=== PATIENT | male | born 1950 | race Caucasian/White ===

== ENCOUNTER 2020-01-28 19:52 | Inpatient (IN) | payer MEDICARE, SELFPAY ==
[2020-01-28] VITALS (15 sets, daily range): BP systolic 154–188; BP diastolic 66–81; PULSE 73–97; RESP 17–22; TEMP 36.6–37.1; O2SAT 96–100; BMI 41.1
--- NOTE | 2020-01-28 19:54 | NURSING ---
NO OLD EKGS IN MUSE
--- NOTE | 2020-01-28 20:06 | ED.VISSUMM ---
- ER Visit Summary Date of Service: 01/28/20 Chief Complaint: Syncope History of Present Illness: The patient is a 69 M who presents after 2 syncopal episodes that occurred tonight. Patient states he was sitting on his couch around 1900 hrs. and felt lightheaded. Patient states his family told him he was unresponsive for a few seconds. Patient states he had a similar episode when EMS was putting him into the squad. Patient denies any chest pain. Patient does admit to some diaphoresis with this. Patient denies any shortness of breath. Prehospital EKG shows ST elevation in leads III and aVF. Based on this a STEMI alert was called. Physical Examination: Vital signs are stable. Patient is afebrile. Patient is in no acute distress. Oral mucosa is pink and moist. Neck is supple. Trachea is midline. There is no JVD. Heart was regular rate and rhythm. Lungs are clear and equal bilaterally. Abdomen is soft. Bowel sounds are normal. There is no tenderness. Extremities are intact. There is no calf tenderness or edema. Cranial nerves II through XII are intact. There are no focal motor or sensory deficits. Test Results: EKG in the emergency department showed normal sinus rhythm. There is a right bundle branch block and a left posterior fascicular block. There is some J-point elevation in lead III. Emergency Department Course and Treatment: IV was established. EMS administered aspirin and Brilinta. Dr. Jim, [facility] clerical support specialist was contacted. The prehospital EKG was sent to him. He will take the patient to the Campaign Assistant. Patient was transferred to the Campaign Assistant. Patient was advised of the risks and benefits of the procedure. Patient is agreeable with this. Patient states he had a heart cath done in 2007 in [place]. Patient states he is familiar with the procedure. Patient is agreeable. All questions were answered. Disposition: Admit to hospital Impression: 1. Acute [place] 2. Syncope This note was generated with [employer] software. It may contain incorrect words, spelling, and punctuation that were not noted in review of the chart prior to signing ED Disposition - Plan for ED Patient: Disposition: Acute Care [facility] Diagnosis: Acute KS, Syncope
--- NOTE | 2020-01-28 20:12 | EKG12_ITS ---
Test Reason : CP Blood Pressure : / mmHG Vent. Rate : 092 BPM Atrial Rate : 092 BPM P-R Int : 212 ms QRS Dur : 166 ms QT Int : 408 ms P-R-T Axes : 078 117 017 degrees QTc Int : 504 ms Sinus rhythm with 1st degree A-V block with occasional Premature ventricular complexes Right bundle branch block Left posterior fascicular block Bifascicular block Abnormal ECG Confirmed by ABHINAV CASTELLANOS, ANTHONY ([id number]), video news editor GRIS HOSKINS ([id number]) on 01/29/2020 1:44:24 PM Referred By: Charly Jim Confirmed By:ANTHONY LA MD
--- NOTE | 2020-01-28 20:13 | CM.ED ---
Social Work Responding to STEMI alert, no family present. Unable to obtain contact information for patient spouse. Eduardo NAVARRO, SANTA
--- NOTE | 2020-01-28 20:15 | PCM.HP.STD ---
Problem List (1) Syncope Status: Acute (2) Hypertension Status: Chronic (3) Diabetes mellitus type 2 Status: Chronic (4) Dyslipidemia Status: Chronic (5) Morbid obesity with BMI of 40.0-44.9, adult Status: Chronic (6) Hypertensive emergency Status: Acute History of Present Illness Date of Admission: 01/28/20 Chief Complaint: Syncope The patient is a 69 year old M with multiple comorbidities as listed above including diabetes mellitus type 2, hypertension and dyslipidemia was brought to ER by EMS for prehospital EKG evaluation of STEMI. Patient was at his normal health before 7 PM and then while sitting on the couch felt lightheaded and then passed out for a few seconds. Patient had similar episode while the EMS squad was putting him into ambulance. Patient denies any chest pain or shortness of breath. He has chronic cough for about 3 to 4 months but denies fever, chills, sore throat or diagnosis of chronic lung disease. Prior to that he has cardiac cath in 2007 in [place] and was found that is 1 of the arteries blocked but probably has developed collaterals as described by patient although no official report. Patient recalls he did not had any stents and at home patient is not on aspirin, antiplatelet or antithrombotic agent. EMS EKG was done shows ST elevation in V1, and lead II and aVF suggestive of right bundle branch block, inferior lead ST elevation or may be artifacts. Rhythm was idioventricular 83 bpm. In ED EKG was done which shows 92 bpm, RBBB, LAFB, RAD, T inversion V1 to V3 and slight ST elevation/J-point elevation in lead III and aVR. ST elevation in inferior leads have gotten better. Patient got aspirin, Brilinta by EMS and nitro sublingual. In ED, IV line was established and patient was directly transferred to heart Psychology Tech as per STEMI protocol. [] Past Medical History Past Medical History (Chronic Problems): Chronic Problems Hypertension (Chronic) Diabetes mellitus type 2 (Chronic) Dyslipidemia (Chronic) Morbid obesity with BMI of 40.0-44.9, adult (Chronic) Allergies No Known Allergies Allergy (Verified 01/28/20 19:57) Home Medications: Ambulatory Orders Medication Instructions Recorded Amlodipine [Norvasc] 10 mg PO DAILY 01/28/20 Fenofibrate 160 mg PO DAILY 01/28/20 Glimepiride [Amaryl] 2 mg PO DAILY 01/28/20 Hydrochlorothiazide [Hctz] 25 mg PO DAILY 01/28/20 Lisinopril 20 mg PO DAILY 01/28/20 Metoprolol Tartrate [Lopressor] 100 mg PO BID 01/28/20 Pioglitazone [Actos] 45 mg PO DAILY 01/28/20 Tamsulosin HCl 0.8 mg PO DAILY 01/28/20 metFORMIN HCl [Glucophage] 1,000 mg PO BIDCM 01/28/20 Smoking Status: Former smoker - *Family History Paternal History Items: - - Patient father of accident Maternal History Items: Cancer - of cancer. Review of Systems Constitutional: Denies: Chills, Fever, Weight Change HEENT: Denies: Head Aches, Sinus Congestion, Sinus Drainage Cardiovascular: Denies: Chest Pain, Palpitations Respiratory: Reports: Cough. Denies: Hemoptysis, Shortness of Breath, Shortness of breath at rest, Sputum production Gastrointestinal: Denies: Abdominal Pain, Nausea, Vomiting Genitourinary: Denies: Dysuria Musculoskeletal: Denies: Joint Pain, Joint Tenderness Skin: Denies: Rash, Wounds Neurological: Denies: Numbness, Tingling, Focal weakness Psychiatric: Denies: Anxiety, Depression, Homicidal Ideations, Suicidal Ideations Hematologic/ Lymphatic: Denies: Easy Bruising, Easy Bleeding Unable to obtain accurate/complete ROS d/t: STEMI protocol VTE Information - Inpt Only VTE Present on Admission: No VTE Mechan Device Prophylaxis: SCD's VTE Pharm Prophylaxis ordered?: Yes Patient Problems: Active and Suspected Problems Syncope (Acute) Hypertensive emergency (Acute) - Physical Exam Vitals/I&O's: Vital Signs Temp Pulse Resp BP Pulse Ox 98.1 F 97 20 H 188/74 H 96 01/28/20 20:14 01/28/20 20:14 01/28/20 20:14 01/28/20 20:14 01/28/20 20:14 Oxygen Delivery Method Room Air Weight: 294 lb 12.128 oz Body Mass Index (BMI) 41.1 General: Alert, Oriented x3, Cooperative HEENT: Atraumatic, PERRLA, EOMI, Normocephalic Neck: Supple, No JVD, Negative Carotid Bruits Lungs: No rhonchi, No wheeze, No rales, Diminished Cardiovascular: Regular rate, No murmurs Abdomen: Bowel Sounds Present, Soft, Non Tender, Non-Distended Extremities: Capillary Refill Less than 3 Seconds, Edema Skin: No rashes, No breakdown Musculoskeletal: No Tenderness to Palpation of Joints or Extremities Neurological: Cranial nerves II-XII grossly intact, Deep Tendon Reflexes 2+/4 and Symmetrical, Neuro grossly intact Psych/Mental Status: Normal Affect, Appropriate Assessment/Plan All Active Problems Syncope (Acute) Hypertensive emergency (Acute) The patient is a 69 year old M with multiple comorbidities as listed above including diabetes mellitus type 2, hypertension and dyslipidemia was brought to ER by EMS for prehospital EKG suspicion of of STEMI. Patient had 2 sudden episodes of syncope. EMS EKG was done shows ST elevation in V1, and lead II and aVF suggestive of right bundle branch block, septal and inferior lead ST elevation or may be artifacts. Rhythm was idioventricular 83 bpm. In ED EKG was done which shows 92 bpm, RBBB, LPFB, RAD, T inversion V1 to V3 and slight ST elevation/J-point elevation in lead III and aVR. ST elevation in inferior leads have gotten better. Overall it seems ST elevation in EMS EKG was artifacts. Patient got aspirin, Brilinta sublingual nitro by EMS. In ED, IV line was established and patient was directly transferred to heart Psychology Tech as per STEMI protocol. [] 1. with syncope, cardiogenic in origin with bifascicular bundle block, RBBB, LPFB: Patient was taken to Psychology Tech and had cardiac cath. Cardiac cath shows chronically occluded RCA with collaterals from left to right, moderate about 50% in proximal circumflex, OM1 proximal less than 30%. Overall it seems EKG changes was not due to chronic RCA occlusion but may be artifact and bifascicular block may be chronic. STEMI was ruled out. 2D echo is ordered. Repeat EKG shows sinus rhythm with first-degree AV block, RBBB, left posterior fascicular block. 2. Hypertensive emergency with chronic coronary artery disease patient blood pressure was elevated in ER, 188/74. Heart rate 97/min. At home, patient is on lisinopril 20 mg daily, metoprolol 100 mg twice daily, amlodipine 10 mg daily and HCTZ 25 mg daily. Started on nitro drip. Lisinopril increased to 20 mg twice daily and metoprolol changed to Coreg 25 mg twice daily. 3. Leukocytosis: Etiology unclear: Patient has chronic cough for 3 to 4 months but has no change in severity or fever or chills. Respiratory panel is ordered. 4.. Hypokalemia: Potassium is being replaced. Magnesium 2.0. 5. Possible acute kidney injury/CKD stage III, exact etiology unclear most probably diabetic nephropathy: Patient BUN/creatinine is 29/1.63. No previous labs to compare. Monitor input and output, electrolytes and kidney function. Avoid nephrotoxic medications and if creatinine goes up, will need to hold HCTZ and lisinopril. 6. Diabetes mellitus type 2: Accu-Chek before meals and at bedtime and cover with Humalog sliding scale. Hold oral hypoglycemic agent to avoid contrast-induced nephropathy. A1c ordered for tomorrow a.m. 7.. Dyslipidemia: Fasting profile tomorrow a.m. Patient on fenofibrate at home. Started on atorvastatin 40 mg daily. 8.. Morbid obesity: Weight loss counseling done. DVT prophylaxis: Bilateral SCDs. Start pharmacological prophylaxis after 24 hours of removal of cath. Advance directive/living will: Patient does not have living will at home. When discussed about different options including full code, DNR CC arrest and DNR CC, patient elected full code. Patient does want artificial life support including intubation, tube feed, ventilator and/chest compression. Total time spent in msop-pi-uptv encounter in discussion of advanced directive 16 minutes. Laboratory Results 01/28/20 20:00: WBC 16.3 H, RBC 4.19 L, Hgb 12.7 L, Hct 39.1 L, MCV 93.3, MCH 30.3, MCHC 32.5, RDW Std Deviation 47.2 H, RDW Coeff of Angela 14.0, Plt Count 283, MPV 10.1, Immature Gran % (Auto) 0.400, Neut % (Auto) 77.4 H, Lymph % (Auto) 13.3 L, [place] % (Auto) 7.3, Eos % (Auto) 1.2, Baso % (Auto) 0.4, Absolute Neuts (auto) 12.6 H, Absolute Lymphs (auto) 2.16, Nucleated RBC % 0 01/28/20 20:00: Sodium Pending, Potassium Pending, Chloride Pending, Carbon Dioxide Pending, Anion Gap Pending, BUN Pending, Creatinine Pending, Est GFR (MDRD) Af Amer Pending, Est GFR (MDRD) Non-Af Pending, BUN/Creatinine Ratio Pending, Glucose Pending, Calcium Pending, Troponin I Pending 01/28/20 20:00: PT 13.1, INR 1.0, APTT 28.2 Inpatient E&M: 55616 Init Hosp L3 Procedures: 89273 Advncd Care Plan 30 Min
[2020-01-28 20:20] LABS: Absolute Lymphocyte Count 2.16 X10^3/uL (0.83-4.51); Absolute Neutrophil Count 12.6 X10^3/uL (2.0-7.7); Basophil# 0.06 X10^3/uL; Basophil% 0.4 % (0-1); Eosinophil# 0.19 X10^3/uL; Eosinophils% 1.2 % (0-5); Hematocrit 39.1 % (40-54); Hemoglobin 12.7 g/dL (13.0-16.5); Lymphocyte # 2.16 X10^3/ul (4.0); Lymphocyte % 13.3 % (19-41); Mean Corp Hgb Conc 32.5 g/dL (32-36); Mean Corpuscular Hgb 30.3 pg (27.0-32.0); Mean Corpuscular Volume 93.3 fL (80-94); Mean Platelet Vol. 10.1 fl (6.2-12.0); Monocyte# 1.19 X10^3/uL; Monocyte% 7.3 % (0-10); NRBC Flagged by Analyzer 0 % (0-5); Neutrophil % 77.4 % (47-70); Platelet Count 283 K/mm3 (150-450); RBC Distribution Width SD 47.2 fl (35.1-43.9); Red Blood Count 4.19 M/mm3 (4.6-6.2); White Blood Count 16.3 K/mm3 (4.4-11.0)
[2020-01-28 20:28] LABS: Partial Thromboplast Time 28.2 Seconds (24.1-36.2); Prothrombin Time (Protime)PT. 13.1 SECONDS (11.7-14.9)
[2020-01-28 20:34] LABS: Anion Gap 8 (5-15); BUN 29 mg/dL (7-18); BUN/Creat Ratio 17.8 RATIO (10-20); Calcium,Total 9.6 mg/dL (8.5-10.1); Chloride 103 mmol/L (98-107); Creatinine, Serum 1.63 mg/dL (0.70-1.30); EST Glomerular Filtration Rate 45 mL/min (>60); Est Glom Filt Rate - Afr Amer 54 mL/min (>60); Glucose 88 mg/dL (74-106); Potassium 3.3 mmol/L (3.5-5.1); Sodium Level 137 mmol/L (136-145)
--- NOTE | 2020-01-28 21:01 | CL.D_ITS ---
Patient Name: HANSA MILLAN Study Date: 01/28/2020 Performing: Charly Jim MD Ht: 70.86 inches 180 cm : 1950 Wt: 295.42 lbs 134 kg Age: 69 Gender: male BSA: 2.49 PROCEDURE(S) PERFORMED [id number]/LV CLINICAL PROFILE AND INDICATIONS Emergent cath to evaluate for possible STEMI. Indications: ACS <= 24 hrs, Suspected CAD Heart Failure: NYHA Class: 1, Newly Diagnosed: No, Heart Failure Type: Systolic Stress/Imaging Stress/Image Study Performed: No Angina Classification Anginal Classification w/in 2 Weeks: No symptoms CAD Presentations: Other: Syncope with possible inferior ST elevation. Comorbidities/Risk Factors: Hypertension Dyslipidemia Prior CHF Diabetes Mellitus: Diabetes Therapy: Oral CONCLUSIONS Segmented LV systolic dysfunction- Moderate LVEF: by LV gram 45-50 % Normal Left Ventricular End Diastolic Pressure Single vessel CAD of the RCA Non obstructive coronary arteries Pt had possible inferior ST elevation without reciprical changes, absent any CP/angina and in the fac e of HTN emergency with 2 syncopal episodes,. RECOMMENDATIONS Management as per referring Diabetes Clinical Manager Successful Mynx Closure of RFA> Adjust anti HTN meds. Staged for FFR No attempts made to open chronically occluded RCA as confirmed by patient from previous cath from 200 8. Pt completely CP free at home and during procedure. DESCRIPTION OF PROCEDURE The patient arrived to the procedure lab. The risks and benefits of the procedure as well as a full d escription of our services here and current unavailability of surgical backup were fully explained to the patient and/or their significant other prior to the catheterization. The Timeout was completed, verifying the correct patient and procedure. The patient's procedural site was prepped and draped in the usual fashion. Local anesthetic was given subcutaneously to right groin region with Lidocaine 2%. Using a modified Seldinger technique, arterial access was obtained via the right femoral artery, a 6 Fr sheath was inserted. Left Coronary Artery selective angiography was performed in multiple views u sing a 4 Fr. JL5 catheter. Right Coronary Artery selective angiography was then performed in multiple views using a 4 Fr. 3DRC catheter. Left Ventriculography was performed in MCWILLIAMS projection using a 4 F r. Pigtail catheter. LV to AO pullback pressures were then recorded.Contrast was injected through the sheath and the Right Iliac and Femoral artery were assessed for possible closure device.T he arterial sheath was pulled and a Mynx closure device was deployed for hemostasis CORONARY ANGIOGRAPHY DOMINANCE: Right Dominant LEFT HEART ASSESSMENT Left Ventricular Ejection Fraction: by LV Gram 45-50 % Inferior Basal Hypokinesis - Moderate Depressed Left Ventricular systolic function LVEDP: 12 mmHg LEFT MAIN: Angiographically normal LEFT ANTERIOR DESCENDING ARTERY: No significant disease noted CIRCUMFLEX ARTERY: PROX CIRC: Moderate luminal irregularities up to 50% OM 1: Proximal - Mild luminal irregularities less than 30% RIGHT CORONARY ARTERY: PROX RCA: is occluded COLLATERAL FLOW: Collateral flow from Left to Right VALVE FINDINGS: Aortic Valve Stenosis - mild COMPLICATIONS No Complications PROCEDURE MEDICATIONS Oxygen: 2 L/min via nasal cannula Nitro glycerin 25mg / 250ml D5W @ 5 mcg/min IV started 01/28/2020 20:35:33 Nitro 200 mcg IC 01/28/2020 20:35:49 Nitro 300 mcg IC 01/28/2020 20:36:51 Metoprolol 5 mg 01/28/2020 20:42:20 SUMMARY OF HEMODYNAMIC DATA Time AIR REST AO 189/-20 (29) SA 20:28:32 AO 94/27 (54) 20:28:35 LV 206/-22, 14 20:34:40 LV 206/-28, 10 20:34:47 LVp 206/-17, 13 20:34:52 AOp 190/61 (110) 20:34:57 ECG 20:38:23 AO 153/61 (92) 20:40:23 Signed By Charly Jim MD On 01/28/2020 21:00:44 Signed By Charly Jim MD On 01/28/2020 21:00:36 Charly Jim MD
[2020-01-28] MEDS: Nitroglycerin Infusion 250 ML 3 MG CONT INF (21:15)
--- NOTE | 2020-01-28 21:22 | ECHOCS_ITS ---
Reason For Study: CAD/ASHD Procedure This was a 2D Doppler, Color Flow transthoracic echocardiogram. The study was technically difficult. Contrast injection was performed. Exam performed portable in patient room. Left Ventricle Mild concentric left ventricular hypertrophy. The estimated ejection fraction is 60-65 %. Stage 1 diastolic dysfunction. Septal motion consistent with IVCD. Posterior-Basal: Mildly hypokinetic. Infero-Basal: Mildly hypokinetic. Right Ventricle Moderately dilated right ventricle. Normal systolic function. Atria The left atrium is mildly enlarged. Normal right atrium. Normal atrial septum. Mitral Valve Mild diffuse mitral valve thickening. Moderate mitral annular calcification extending into the posterior leaflet. Mild mitral valve stenosis. Trivial mitral valve insufficiency. Tricuspid Valve Normal tricuspid valve. Unable to estimate RV systolic pressure due to insufficient tricuspid regurgitant envelope. Aortic Valve Trisinus/trileaflet aortic valve. Mild diffuse aortic valve thickening. Mild aortic stenosis. Pulmonic Valve The pulmonic valve is not well visualized. Great Vessels Normal aortic root. Mild atherosclerosis of the aortic arch. Normal inferior vena cava. Inferior vena cava collapse with sniff. Pericardium/Pleural No pericardial effusion. Medication Diluted definity 3ml given slow IV push to enhance endocardial definition. MMode/2D Measurements & Calculations LVIDd: 4.9 cm IVSd: 1.4 cm LVOT diam: 2.1 cm LVIDs: 2.4 cm LVPWd: 1.4 cm RVDd: 4.6 cm FS: 51.5 % LVOT area: 3.4 cm2 Ao root diam: 3.3 cm LAV(MOD-bp): 75.7 ml LA A4 area: 23.5 cm2 LA dimension: 3.7 cm LAV(MOD-bp) Indexed: 30.5 ml/m2 LAV(MOD-sp2): 77.3 ml LAV(MOD-sp4): 73.7 ml LA dimension(2D): 4.8 cm RA A4 area: 20.3 cm2 Doppler Measurements & Calculations MV E max davi: 100.0 cm/sec Lat Peak E' Davi: 8.7 cm/sec Med Peak E' Davi: 4.6 cm/sec MV A max davi: 109.8 cm/sec E/E' lat: 11.5 E/E' med: 21.8 MV E/A: 0.91 MV V2 max: 129.4 cm/sec Ao V2 max: 234.4 cm/sec LV V1 max: 146.5 cm/sec MV max P.7 mmHg Ao max P.0 mmHg LV V1 max P.6 mmHg MV V2 mean: 87.1 cm/sec Ao V2 mean: 163.4 cm/sec LV V1 mean P.9 mmHg MV mean P.3 mmHg Ao mean P.9 mmHg LV V1 mean: 106.6 cm/sec MV V2 VTI: 43.2 cm Ao V2 VTI: 46.8 cm LV V1 VTI: 31.8 cm MVA(VTI): 2.5 cm2 JABARI(I,D): 2.3 cm2 JABARI(V,D): 2.1 cm2 SV(LVOT): 109.0 ml PA V2 max: 120.0 cm/sec Interpretation Summary The estimated ejection fraction is 60-65 %. Stage 1 diastolic dysfunction. Posterior-Basal: Mildly hypokinetic Infero-Basal: Mildly hypokinetic Mild concentric left ventricular hypertrophy. Moderately dilated right ventricle. The left atrium is mildly enlarged. Trivial mitral valve insufficiency. Unable to estimate RV systolic pressure due to insufficient tricuspid regurgitant envelope. Mild aortic stenosis. Mild mitral valve stenosis. The study was technically difficult. Contrast injection was performed. There is no comparison study available. Ordering Physician: Charly Jim Referring Physician: Dean Sena Performed By: Bibiana Rehman, GUERLINE, RVT
--- NOTE | 2020-01-28 21:49 | EKG12_ITS ---
Test Reason : DYSRHYTHMIA Blood Pressure : / mmHG Vent. Rate : 081 BPM Atrial Rate : 081 BPM P-R Int : 224 ms QRS Dur : 182 ms QT Int : 440 ms P-R-T Axes : 084 116 017 degrees QTc Int : 511 ms Sinus rhythm with 1st degree A-V block Right bundle branch block Left posterior fascicular block Bifascicular block Confirmed by ABHINAV CASTELLANOS, ANTHONY ([id number]), engineering patternmaker GRIS HOSKINS ([id number]) on 02/03/2020 10:22:57 AM Referred By: Charly Jim Confirmed By:ANTHONY LA MD
--- NOTE | 2020-01-28 23:02 | RAD_ITS ---
STUDY: X-RAY CHEST REASON FOR EXAM: Male, 69 years old. Chest pain. TECHNIQUE: AP portable supine COMPARISON: None. FINDINGS: No evidence of pneumonia, pulmonary edema, pneumothorax or pleural effusion. Cardiac silhouette, hilar and mediastinal contours with no acute findings. Heart size normal. Atherosclerosis of the thoracic aorta. Degenerative osseous changes with no acute osseous abnormality. RAD/Chest 1 View (Portable) IMPRESSION: No acute findings. Electronically Signed: Leon Pablo, at 23:14 EDT Tel , Service support ,
[2020-01-28] MEDS: amLODIPine 10 MG Tablet PO (23:27)
[2020-01-28] MEDS: Carvedilol 25 MG Tablet PO (23:27)
[2020-01-28] MEDS: 0.9% Normal Saline 1,000 ML 60 ML IV (23:27)
[2020-01-28] MEDS: Lisinopril 20 MG Tablet PO (23:27)
[2020-01-29] VITALS (32 sets, daily range): BP systolic 105–164; BP diastolic 49–96; PULSE 63–79; RESP 14–23; TEMP 36.6–36.8; O2SAT 93–98
[2020-01-29 00:16] LABS: Bedside Glucose 120 mg/dL (70-110)
[2020-01-29] MEDS: Acetaminophen 325 MG Tablet 650 MG PO (01:03)
[2020-01-29 01:54] LABS: Bacteria 0 SEEN /hpf (None Seen); Mucous, Urine 0 SEEN /hpf (<or=2+); Red Blood Cells-Urine 0 SEEN /hpf (0-5)
[2020-01-29 01:56] LABS: Color, Urine Yellow (Yellow); Glucose, Dipstick Normal (Normal); Ketone-Dipstick Negative (Negative); Leukocyte Esterase-Dipstick 25 /ul (Negative); Nitrite-Dipstick Negative (Negative); Occult Blood-Urine Negative /ul (Negative); Protein-Dipstick Negative (Negative); Specific Gravity, Urine 1.005 (1.002-1.030); Urine Bilirubin Dipstick Negative (Negative); Urine Clarity Sl. Cloudy (Clear); Urine Urobilinogen Normal (Normal)
[2020-01-29 02:03] LABS: Squamous Epithelial Cells - UA 0-5 SEEN /hpf (0-5); White Blood Cells 0-5 SEEN /hpf (0-5)
--- NOTE | 2020-01-29 02:18 | NURSING ---
Ambulated pt at 0130 following 4 hour post cardiac cath bedrest. Pt tolerated activity well, no signs of bleeding at site, dressing c/d/i. Nishi RN
[2020-01-29 05:55] LABS: Absolute Lymphocyte Count 1.09 X10^3/uL (0.83-4.51); Absolute Neutrophil Count 9.3 X10^3/uL (2.0-7.7); Basophil# 0.03 X10^3/uL; Basophil% 0.3 % (0-1); Eosinophil# 0.03 X10^3/uL; Eosinophils% 0.3 % (0-5); Hematocrit 35.1 % (40-54); Hemoglobin 11.4 g/dL (13.0-16.5); Lymphocyte # 1.09 X10^3/ul (4.0); Lymphocyte % 9.6 % (19-41); Mean Corp Hgb Conc 32.5 g/dL (32-36); Mean Corpuscular Hgb 29.4 pg (27.0-32.0); Mean Corpuscular Volume 90.5 fL (80-94); Mean Platelet Vol. 10.4 fl (6.2-12.0); Monocyte# 0.85 X10^3/uL; Monocyte% 7.5 % (0-10); NRBC Flagged by Analyzer 0 % (0-5); Neutrophil # 9.26 X10^3/uL (2.7-7.7); Neutrophil % 81.9 % (47-70); Platelet Count 278 K/mm3 (150-450); RBC Distribution Width CV 13.8 % (11.6-14.6); RBC Distribution Width SD 45.5 fl (35.1-43.9); Red Blood Count 3.88 M/mm3 (4.6-6.2); White Blood Count 11.3 K/mm3 (4.4-11.0)
--- NOTE | 2020-01-29 05:55 | EKG12_ITS ---
Test Reason : AM EKG Blood Pressure : / mmHG Vent. Rate : 069 BPM Atrial Rate : 069 BPM P-R Int : 212 ms QRS Dur : 164 ms QT Int : 444 ms P-R-T Axes : 078 114 025 degrees QTc Int : 475 ms Sinus rhythm with 1st degree A-V block Right bundle branch block Left posterior fascicular block Bifascicular block Abnormal ECG Confirmed by ABHINAV CASTELLANOS, ANTHONY ([id number]), magazine editor KINGS BUCHANAN ([id number]) on 02/03/2020 9:32:09 AM Referred By: Charly Jim Confirmed By:ANTHONY LA MD
[2020-01-29 06:32] LABS: AST(SGOT) 15 U/L (15-37); Alanine Aminotransfer ALT/SGPT 17 U/L (16-61); Albumin, Serum 3.2 g/dL (3.2-5.0); Alkaline Phosphatase 48 U/L (45-117); Anion Gap 9 (5-15); BUN 26 mg/dL (7-18); BUN/Creat Ratio 18.1 RATIO (10-20); Bilirubin, Direct 0.18 mg/dL (0.00-0.30); Chloride 105 mmol/L (98-107); Cholesterol 150 mg/dL (200); Creatinine, Serum 1.44 mg/dL (0.70-1.30); EST Glomerular Filtration Rate 52 mL/min (>60); Est Glom Filt Rate - Afr Amer 63 mL/min (>60); Estimated Creatinine Clearance 52.29 ml/min; Globulin 4.6 g/dL (2.2-4.2); Glucose 148 mg/dL (74-106); High Density Lipoprotein 39 mg/dL; Potassium 4.1 mmol/L (3.5-5.1); Protein, Total 7.8 g/dL (6.4-8.2); Sodium Level 137 mmol/L (136-145); Thyroid Stim Hormone (TSH) 1.01 uIU/mL (0.358-3.74); Triglycerides 143 mg/dL; Very Low Density Lipoprotein 29 mg/dL (5-40)
[2020-01-29 07:06] LABS: Bedside Glucose 144 mg/dL (70-110)
[2020-01-29] MEDS: Carvedilol 25 MG Tablet PO (08:37)
[2020-01-29] MEDS: hydroCHLOROthiazide 25 MG Tablet PO (08:37)
[2020-01-29] MEDS: Lisinopril 20 MG Tablet PO (08:38)
--- NOTE | 2020-01-29 08:39 | PCM.PN.CARD ---
Subjectve: Patient seen and examined, and denies any chest pain or anginal symptoms. Feels much better this morning. Troponins negative. 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 Nitroglycerin drip infusing. Hemoglobin and creatinine are within nominal limits. Objective: Vital Signs Temp Pulse Resp BP Pulse Ox 98.1 F 69 22 H 143/62 H 95 01/29/20 03:15 01/29/20 07:00 01/29/20 07:00 01/29/20 07:00 01/29/20 07:00 Oxygen Delivery Method Room Air Weight: 294 lb 12.128 oz Body Mass Index (BMI) 41.1 Orthostatic Vital Signs Start: 01/29/20 01:54 Freq: q24h Status: Active Protocol: Activity Type Activity Date Activity User E-Sign Co-Sign Detail Recorded Client Recorded Date Recorded By Document 01/29/20 01:30 CM [id number] 01/29/20 01:55 CM 01/29/20 01:30 Orthostatic Vitals Standing -Blood Pressure (90/60-120/80) 105/64 -Extremity Use Left Arm -Pulse Rate (60-100) 78 Sitting -Blood Pressure (90/60-120/80) 120/65 -Extremity Use Left Arm -Pulse Rate (60-100) 74 Lying -Blood Pressure (90/60-120/80) 146/58 H -Extremity Use Left Arm -Pulse Rate (60-100) 68 Intake and Output for Last 24 Hours 01/27/20 01/28/20 01/29/20 23:59 23:59 23:59 Intake Total 129.00 / 131.25 290.25 / 290.25 Output Total 1275 / 1275 550 / 550 Balance -1146.00 / -1143.75 -259.75 / -259.75 General: Awake, Alert, Oriented x 3 HEENT: PERRL, EOMI, Sclera Non Icteric Neck: Supple, Good ROM, No Lymph Node Enlargement Lungs: Clear to auscultation Cardiovascular: Regular Rhythm, Normal S1, Normal S2, No Murmurs, No Rubs, No Gallops Vascular: No Carotid Bruits, Normal Femoral Pulses, Normal Radial Pulses, Normal Dorsalis Pedal Pulse, Normal Posterior Tibial Pulses Abdomen: Bowel Sounds Present, Soft, Non Tender, No HSM, No Organomegaly Extremities: No Cyanosis, No Clubbing, No edema Neurological: No Focal Motor or Sensory Deficit 01/28/20 20:00: WBC 16.3 H, RBC 4.19 L, Hgb 12.7 L, Hct 39.1 L, MCV 93.3, MCH 30.3, MCHC 32.5, Plt Count 283, MPV 10.1, Immature Gran % (Auto) 0.400, Neut % (Auto) 77.4 H, Lymph % (Auto) 13.3 L, [place] % (Auto) 7.3, Eos % (Auto) 1.2, Baso % (Auto) 0.4, Absolute Neuts (auto) 12.6 H, Nucleated RBC % 0 01/28/20 20:00: Sodium 137, Potassium 3.3 L, Chloride 103, Carbon Dioxide 26.0, Anion Gap 8, BUN 29 H, Creatinine 1.63 H, Est GFR (MDRD) Af Amer 54 L, Est GFR (MDRD) Non-Af 45 L, BUN/Creatinine Ratio 17.8, Glucose 88, Calcium 9.6, Troponin I < 0.015 01/28/20 20:00: PT 13.1, INR 1.0, APTT 28.2 01/28/20 20:00: Magnesium 2.0 01/29/20 00:35: Troponin I < 0.015 01/29/20 01:40: Urine Color Yellow, Urine Clarity Sl. Cloudy, Urine pH 7.0, Ur Specific [place] 1.005, Urine Protein Negative, Urine Glucose (UA) Normal, Urine Ketones Negative, Urine Occult Blood Negative, Urine Nitrite Negative, Urine Bilirubin Negative, Urine Urobilinogen Normal, Ur Leukocyte Esterase 25 H, Urine RBC 0 SEEN, Urine WBC 0-5 SEEN 01/29/20 02:26: Troponin I < 0.015 01/29/20 05:00: Sodium 137, Potassium 4.1, Chloride 105, Carbon Dioxide 23.0, Anion Gap 9, BUN 26 H, Creatinine 1.44 H, Est GFR (MDRD) Af Amer 63, Est GFR (MDRD) Non-Af 52 L, BUN/Creatinine Ratio 18.1, Glucose 148 H, Calcium 9.0, Total Bilirubin 0.50, Direct Bilirubin 0.18, Triglycerides 143, Cholesterol 150, LDL Cholesterol 82, VLDL Cholesterol 29, HDL Cholesterol 39 L 01/29/20 05:00: WBC 11.3 H, RBC 3.88 L, Hgb 11.4 L, Hct 35.1 L, MCV 90.5, MCH 29.4, MCHC 32.5, Plt Count 278, MPV 10.4, Immature Gran % (Auto) 0.400, Neut % (Auto) 81.9 H, Lymph % (Auto) 9.6 L, [place] % (Auto) 7.5, Eos % (Auto) 0.3, Baso % (Auto) 0.3, Absolute Neuts (auto) 9.3 H, Nucleated RBC % 0 Rhythm: EKG: ECHO: Stress Test: Cardiac Cath: PCI: CT Surgery: Holter monitor: EPS: PPM: CXR: Chest CT Scan: Medical Necessity - Tobacco Use Smoking Status: Former smoker Assessment/Plan 1. Coronary artery disease: The patient presented yesterday with a syncopal episode x2 superimposed on possible acute inferior wall myocardial infarction which in retrospect was most likely motion artifact on the EKG at the patient's home. Subsequent EKG upon arrival showed normal sinus rhythm with old inferior/posterior wall myocardial infarction and right bundle branch block. Emergent catheterization dated 01/28/2020 demonstrated chronically occluded right coronary artery, robust left to right collaterals, and nonobstructive disease of his LAD and left circumflex. LV function was moderately reduced with an EF around 45% with inferior hypokinesis. Recommend obtaining a 2D echo with Doppler this morning to evaluate his pulmonary pressures and LV function. In addition we will titrate off his nitroglycerin drip, increase his lisinopril to 20 twice daily, and switch him from metoprolol to Coreg 12.5 mg p.o. twice daily. He will continue his amlodipine. In addition he will continue baby aspirin but we will discontinue his Brilinta. His right groin is clean/dry/intact, without evidence of thrills, bruits or hematoma. We will ambulate the patient today and determine whether his blood pressure is stable. 2. Syncope: It is unlikely the patient had a ventricular arrhythmia to explain his syncope, more likely it may have been hypoglycemia related. Nonetheless I would consider a CT scan of his head to ensure that he has had no CVA that may have contributed to his syncopal episode. 3. Hyperlipidemia: Recommend Lipitor 80 mg p.o. nightly and repeat lipid profile in 6 weeks time. 4. Consideration for discharge of the patient home assuming that his blood pressure is stable, his blood sugars are stable, his groin is stable, and his neurological work-up is negative. He may follow-up with Dr. Jim going forward. 5. Thank you very much for the opportunity to participate in the cardiac care of your patient. Inpatient E&M: 66336 Subs Hosp L2
--- NOTE | 2020-01-29 10:20 | CASEMGMT ---
Social Work Pt is listed as self pay. SW met with pt who confirms he does have [employer] insurance and that upon discharge his will bring his insurance card in and provide to staff to scan into system. RAVEN Goff
[2020-01-29] MEDS: Insulin Lispro 100 UNIT/ML INSULN.PEN SC (11:28)
--- NOTE | 2020-01-29 11:42 | PCM.DC ---
- Discharge Diagnoses Current Active Problems: Current Active and Chronic Problems Syncope (Acute) Hypertensive emergency (Acute) You will use the following diet at home:: Calorie/Carbohydrate Controlled (specify 1200, 1400, etc) - 1800 scot Your food should be the consistency of: Regular Your liquids should be the consistency of: Regular/Thin Discharge Activity: Return to Normal Activity Weight Bearing Status: Full weight bearing Allergies/Adverse Reactions: Allergies No Known Allergies Allergy (Verified 01/28/20 19:57) Medications to take at Discharge Amlodipine [Norvasc] 10 mg PO DAILY 01/28/20 Fenofibrate 160 mg PO DAILY 01/28/20 Hydrochlorothiazide [Hctz] 25 mg PO DAILY 01/28/20 Pioglitazone [Actos] 45 mg PO DAILY 01/28/20 Tamsulosin HCl 0.8 mg PO DAILY 01/28/20 metFORMIN HCl [Glucophage] 1,000 mg PO BIDCM 01/28/20 Atorvastatin Calcium [Lipitor] 20 mg PO DAILY #30 tab 01/29/20 Carvedilol [Coreg (Beta Lupillo)] 12.5 mg PO BID #60 tab 01/29/20 Lisinopril [Zestril] 20 mg PO BID #60 tab 01/29/20 The following prescriptions were given: Carvedilol [Coreg (Beta Lupillo)] 12.5 mg PO BID #60 tab Transmission Status: Pending to [facility] Atorvastatin Calcium [Lipitor] 20 mg PO DAILY #30 tab Transmission Status: Pending to [facility] #[facility] Lisinopril [Zestril] 20 mg PO BID #60 tab Transmission Status: Pending to [facility] Primary Care Physician: Dean Sena MD [Primary Care Provider] - Please follow up with your Primary Care Physician in: as directed-call for appointment Test Results: Test results from this visit will be discussed in further detail at your follow-up appointment, if applicable. Please Follow Up With: Charly Jim MD When: as directed-call for appointment
[2020-01-29 11:56] LABS: Bedside Glucose 222 mg/dL (70-110)
--- NOTE | 2020-01-29 12:37 | PHA.DC.MC ---
Pharmacy Service has performed discharge medication reconciliation and counseling for this patient. 1. LISINOPRIL 20MG PO BID 2. ATORVASTATIN 20MG PO DAILY 3. CARVEDILOL 12.5MG PO BID The patient's discharge medication list was reviewed for discrepancies and discrepancies were resolved. Home Medications Amlodipine [Norvasc] 10 mg PO DAILY 01/28/20 Fenofibrate 160 mg PO DAILY 01/28/20 Hydrochlorothiazide [Hctz] 25 mg PO DAILY 01/28/20 Pioglitazone [Actos] 45 mg PO DAILY 01/28/20 Tamsulosin HCl 0.8 mg PO DAILY 01/28/20 metFORMIN HCl [Glucophage] 1,000 mg PO BIDCM 01/28/20 Atorvastatin Calcium [Lipitor] 20 mg PO DAILY #30 tab 01/29/20 Carvedilol [Coreg (Beta Lupillo)] 12.5 mg PO BID #60 tab 01/29/20 Lisinopril [Zestril] 20 mg PO BID #60 tab 01/29/20 The patient was counseled on the following discharge medications and changes in medications for homegoing were reviewed. The Reason for Use, instructions for use, and potential side effects were reviewed for all new medications. The patient's questions regarding all of their medications were answered. The patient was able to verbally demonstrate an understanding of their discharge medications.
--- NOTE | 2020-01-29 16:20 | PCM.DC.SUM ---
Discharge Date and Diagnosis Date of Admission: 01/28/20 Date of Discharge: 01/29/20 - Primary Discharge Diagnosis #1 syncope-etiology unclear #2 Non obstructive coronary artery disease #3 hypertensive urgency #4 type 2 diabetes #5 hyperlipidemia There was no evidence of an acute STEMI or hypertensive emergency. - Secondary Discharge Diagnosis Chronic Problems Hypertension (Chronic) Diabetes mellitus type 2 (Chronic) Dyslipidemia (Chronic) Morbid obesity with BMI of 40.0-44.9, adult (Chronic) Hospital Course and Treatment Operations: None Procedures: 2-D Echocardiogram, Cardiac catheterization Summary of Care Provided: The patient is a 69 year old M was seen in the emergency room at [facility] with a chief complaint of 2 episodes of syncope-patient's family told the patient he was out just for a few seconds., Patient had a second episode when EMS was putting him into the squad car for transport to the ER. Patient denied any chest pain, he did admit to some diaphoresis. Evaluation of the patient in the emergency room included an EKG which showed a normal sinus rhythm but there appeared to be some ST-T wave changes in lead III that was troubling and due to concerns of an acute STEMI, cardiology was contacted and patient was taken to the [facility]-cardiac catheterization revealed no evidence of occlusive coronary disease however. Patient was admitted to PCU post catheterization. Cardiology saw the patient in consultation, patient had an echocardiogram performed which showed a normal EF. Patient's blood pressure medications were adjusted and the patient was kept off his oral type II diabetic medications. It was felt that it is possible that the patient could have had a hypoglycemic episode at home. Patient underwent an echocardiogram while hospitalized and this showed a normal ejection fraction of 60 to 65%. On 01/29/2020, patient was seen and examined: On examination he appeared in good health and spirits. Vital signs as documented. Skin warm and dry and without overt rashes. Neck without JVD, neck was supple, trachea midline, thyroid was normal. Lungs clear bilaterally, normal air movement was noted. Heart exam notable for regular rhythm, normal sounds and absence of murmurs, rubs or gallops. Abdomen unremarkable and without evidence of organomegaly, masses, or abdominal aortic enlargement. Bowel sounds are present, abdomen is not distended. Extremities nonedematous, no cyanosis was noted, no clubbing was noted. Neuro: Cranial nerves II through XII are grossly intact, no focal motor deficits were noted, sensation to light touch and pinprick intact, motor exam 5/5 throughout. Psych: Patient is alert and oriented x3, he does not appear anxious or depressed, he does not appear agitated. Patient was discharged home in stable condition on 01/29/2020. Patient's Amaryl was discontinued at discharge from the hospital, patient is to follow-up with his PCP regarding his diabetic medications and for a follow-up visit. - Physical Exam Vitals/I&O's: Vital Signs Temp Pulse Resp BP Pulse Ox 98.3 F 68 16 140/55 H 98 01/29/20 10:30 01/29/20 10:30 01/29/20 10:30 01/29/20 10:30 01/29/20 10:30 Oxygen Delivery Method Room Air Weight: 133.7 kg Body Mass Index (BMI) 41.1 Orthostatic Vital Signs Start: 01/29/20 01:54 Freq: q24h Status: Active Protocol: Activity Type Activity Date Activity User E-Sign Co-Sign Detail Recorded Client Recorded Date Recorded By Document 01/29/20 01:30 CM [id number] 01/29/20 01:55 CM 01/29/20 01:30 Orthostatic Vitals Standing -Blood Pressure (90/60-120/80) 105/64 -Extremity Use Left Arm -Pulse Rate (60-100) 78 Sitting -Blood Pressure (90/60-120/80) 120/65 -Extremity Use Left Arm -Pulse Rate (60-100) 74 Lying -Blood Pressure (90/60-120/80) 146/58 H -Extremity Use Left Arm -Pulse Rate (60-100) 68 Intake and Output for Last 24 Hours 01/27/20 01/28/20 01/29/20 23:59 23:59 23:59 Intake Total 129.00 / 131.25 1116.75 / 1116.75 Output Total 1275 / 1275 550 / 550 Balance -1146.00 / -1143.75 566.75 / 566.75 Microbiology Past 72 Hours 01/28/20 21:52 Mucosa - Nasopharyngeal Respiratory Panel (PCR) - Final Laboratory Results 01/28/20 20:00: WBC 16.3 H, RBC 4.19 L, Hgb 12.7 L, Hct 39.1 L, MCV 93.3, MCH 30.3, MCHC 32.5, RDW Std Deviation 47.2 H, RDW Coeff of Angela 14.0, Plt Count 283, MPV 10.1, Immature Gran % (Auto) 0.400, Neut % (Auto) 77.4 H, Lymph % (Auto) 13.3 L, [place] % (Auto) 7.3, Eos % (Auto) 1.2, Baso % (Auto) 0.4, Absolute Neuts (auto) 12.6 H, Absolute Lymphs (auto) 2.16, Nucleated RBC % 0 01/28/20 20:00: Sodium 137, Potassium 3.3 L, Chloride 103, Carbon Dioxide 26.0, Anion Gap 8, BUN 29 H, Creatinine 1.63 H, Estim Creat Clear Calc 46.20, Est GFR (MDRD) Af Amer 54 L, Est GFR (MDRD) Non-Af 45 L, BUN/Creatinine Ratio 17.8, Glucose 88, Calcium 9.6, Troponin I < 0.015 01/28/20 20:00: PT 13.1, INR 1.0, APTT 28.2 01/28/20 20:00: Magnesium 2.0 01/28/20 23:23: POC Glucose 120 H 01/29/20 00:35: Troponin I < 0.015 01/29/20 01:40: Urine Color Yellow, Urine Clarity Sl. Cloudy, Urine pH 7.0, Ur Specific [place] 1.005, Urine Protein Negative, Urine Glucose (UA) Normal, Urine Ketones Negative, Urine Occult Blood Negative, Urine Nitrite Negative, Urine Bilirubin Negative, Urine Urobilinogen Normal, Ur Leukocyte Esterase 25 H, Urine RBC 0 SEEN, Urine WBC 0-5 SEEN, Ur Squamous Epith Cells 0-5 SEEN, Urine Bacteria 0 SEEN, Urine Mucus 0 SEEN 01/29/20 02:26: Troponin I < 0.015 01/29/20 05:00: Sodium 137, Potassium 4.1, Chloride 105, Carbon Dioxide 23.0, Anion Gap 9, BUN 26 H, Creatinine 1.44 H, Estim Creat Clear Calc 52.29, Est GFR (MDRD) Af Amer 63, Est GFR (MDRD) Non-Af 52 L, BUN/Creatinine Ratio 18.1, Glucose 148 H, Calcium 9.0, Total Bilirubin 0.50, Direct Bilirubin 0.18, AST 15, ALT 17, Alkaline Phosphatase 48, Total Protein 7.8, Albumin 3.2, Globulin 4.6 H, Triglycerides 143, Cholesterol 150, LDL Cholesterol 82, VLDL Cholesterol 29, HDL Cholesterol 39 L, TSH 1.01 01/29/20 05:00: WBC 11.3 H, RBC 3.88 L, Hgb 11.4 L, Hct 35.1 L, MCV 90.5, MCH 29.4, MCHC 32.5, RDW Std Deviation 45.5 H, RDW Coeff of Angela 13.8, Plt Count 278, MPV 10.4, Immature Gran % (Auto) 0.400, Neut % (Auto) 81.9 H, Lymph % (Auto) 9.6 L, [place] % (Auto) 7.5, Eos % (Auto) 0.3, Baso % (Auto) 0.3, Absolute Neuts (auto) 9.3 H, Absolute Lymphs (auto) 1.09, Nucleated RBC % 0 01/29/20 06:41: POC Glucose 144 H 01/29/20 11:25: POC Glucose 222 H Discharge Activity: Return to Normal Activity Weight Bearing Status: Full weight bearing Home Medications: Medications to take at Discharge Amlodipine [Norvasc] 10 mg PO DAILY 01/28/20 Fenofibrate 160 mg PO DAILY 01/28/20 Hydrochlorothiazide [Hctz] 25 mg PO DAILY 01/28/20 Pioglitazone [Actos] 45 mg PO DAILY 01/28/20 Tamsulosin HCl 0.8 mg PO DAILY 01/28/20 metFORMIN HCl [Glucophage] 1,000 mg PO BIDCM 01/28/20 Atorvastatin Calcium [Lipitor] 20 mg PO DAILY #30 tab 01/29/20 Carvedilol [Coreg (Beta Lupillo)] 12.5 mg PO BID #60 tab 01/29/20 Lisinopril [Zestril] 20 mg PO BID #60 tab 01/29/20 Following Prescrptions Were Given to Patient: Carvedilol [Coreg (Beta Lupillo)] 12.5 mg PO BID #60 tab Transmission Status: Received by [facility] #44 Atorvastatin Calcium [Lipitor] 20 mg PO DAILY #30 tab Transmission Status: Received by [id number] Lisinopril [Zestril] 20 mg PO BID #60 tab Transmission Status: Received by [id number] #44 Primary Care Physician: Dean Sena MD [Primary Care Provider] - Please follow up with your Primary Care Physician in: as directed-call for appointment Please Follow Up With: Charly Jim MD When: as directed-call for appointment Disposition: Home Minutes spent on discharge:: 32 Patient Condition:: Stable Medical Necessity - Tobacco Use Smoking Status: Former smoker Meaningful Use Info Meaningful Use Diagnoses (Choose all that apply): None applicable Inpatient E&M: 58823 Disch Hosp
== END 2020-01-29 13:30 | disposition home or self-care (01) | DRG 287 ==
LOC: ED 20:06 → PCU 20:48
PROVIDERS: Admitting Provider Internal Medicine; Emergency Provider Emergency Medicine; PCP Family Medicine; Referring Provider Internal Medicine Cardiovascular Disease; Visit Provider Internal Medicine
DX: R55 Syncope and collapse (principal); Z68.41 Body mass index [BMI] 40.0-44.9, adult; I16.0 Hypertensive urgency; I25.10 Atherosclerotic heart disease of native coronary artery without angina pectoris; E87.6 Hypokalemia; E11.9 Type 2 diabetes mellitus without complications; I10 Essential (primary) hypertension; E78.5 Hyperlipidemia, unspecified; E66.01 Morbid (severe) obesity due to excess calories; Z79.84 Long term (current) use of oral hypoglycemic drugs; Z79.899 Other long term (current) drug therapy; I25.2 Old myocardial infarction; Z87.891 Personal history of nicotine dependence
CPT/HCPCS: 36415; 71045; 80048; 80061; 80076; 81001; 82962; 83735; 84443; 84484; 85025; 85610; 85730; 87633; 93005; 93306; 93458; 99284; C1760; J7030; J7040; Q9957; A4216; C1769; C1894; C8929; Q9967